=== PATIENT | female | born 1995 | race Caucasian/White ===

== ENCOUNTER 2016-09-07 07:07 | Emergency (ER) | payer MEDICAID | END 2016-09-07 07:59 | disposition home or self-care (01) | LOC: CED 07:07 | DX: O26.90 Pregnancy related conditions, unspecified, unspecified trimester (principal); R10.9 Unspecified abdominal pain; Z88.8 Allergy status to other drugs, medicaments and biological substances | CPT/HCPCS: 99283 ==